=== PATIENT | female | born 1995 | race African-American/Black ===

== ENCOUNTER 2016-11-08 15:55 | Inpatient (IN) | payer OTHER ==
[~2016-11-08] VITALS: Ht 165.1 cm; Wt 95.7 kg
[2016-11-08 20:25] LABS: ABSOLUTE BASOPHIL COUNT 0 /CUMM (0.0-0.2); ABSOLUTE EOSINOPHIL COUNT 0.1 /CUMM (0.0-0.7); ABSOLUTE GRANULOCYTE CT 5.3 /CUMM (1.4-6.5); ABSOLUTE LYMPH COUNT 2.5 /CUMM (1.2-3.4); ABSOLUTE MONOCYTE COUNT 0.8 /CUMM (0.10-0.60); BASOPHIL % 0.3 % (0.0-2.0); MEAN CORPUSCULAR HGB 28.7 PG (27.0-31.0); MEAN CORPUSCULAR HGB CONC 32.5 G/DL (33.0-37.0); MEAN CORPUSCULAR VOLUME 88.3 FL (81.0-99.0); MEAN PLATELET VOLUME 8.4 FL (7.4-10.4); PLATELET COUNT 256 /CUMM (130-400); RBC DISTRIBUTION WIDTH 15.5 % (11.5-14.5); RED BLOOD CELL CT 4.08 /CUMM (4.20-5.40); WHITE BLOOD CELL COUNT 8.7 /CUMM (4.8-10.8)
--- NOTE | 2016-11-09 05:25 | History & Physical ---
General Information and HPI MD Statement: I have seen and personally examined RUSSELL MATTHEW and documented this H&P. The patient is a 21 year old female at [41] weeks and [0] days gestation who presented with a chief complaint of [active labor]. Source of Information: police History of Present Illness: actyive labor. 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 EENTM: Reports: no symptoms. Cardiovascular: Reports: no symptoms. Respiratory: Reports: no symptoms. GI: Reports: no symptoms. Genitourinary: Reports: see HPI. Musculoskeletal: Reports: no symptoms. Skin: Reports: no symptoms. Neurological/Psychological: Reports: no symptoms. Hematologic/Endocrine: Reports: no symptoms. Immunologic/Allergic: Reports: no symptoms. All Other Systems: Reviewed and Negative Exam & Diagnostic Data Last 24 Hrs of Vital Signs/I&O Intake & Output / 0800 04/ 0000 11/08 1600 Intake Total Output Total Balance Patient 211 lb Weight Obstetric Exam Wgt Gained During : 40 Pelvimetry: gynecoid Dilation (cm): 5 Effacement (%): 100 Station: -1 Membranes: intact Fluid: unknown Fundal Height (cm): 41 Multiple Gestation? No Contractions: q2 #1 - FHR Baseline: 135 Category: 1 Estimated Weight: 8 Presentation: cephalic Patient for Induction? No Physical Exam: chest cta cv nl s1s1 abd gravid ext nt Labs Blood Type & Rh: B pos Antibody Screen: neg Hct/Hgb & Platelets #1: Hct/Hgb & Platelets #2: Rubella: imm VDRL #1: nr VDRL #2: nr HbsAg: neg HIV #1: neg HIV #2 neg 1 Hr P Group B Strep: neg Initial Ultrasound: wnl Anatomy Ultrasound: wnl Genetic Testing: neg Assessment/Plan Assessment/Plan: 41 week labor exp mgmt As Ranked By This Provider Problem List: 1. Core Measures/Miscellaneous Venous Thromboembolism VTE Risk Factors: / VTE Contraindications: No Contraindications VTE Diagnosis: No Beta Corey Is Beta Corey a Home Med? No Antibiotics Is Patient on Antibiotics? No
--- NOTE | 2016-11-09 05:27 | Labor & Delivery Summary ---
Delivery Summary Vaginal Delivery: Vaginal: spontaneous Episiotomy/Lacerations: Episiotomy/Lacerations: epis Type: rml Repair: 3-0 layered Anesthesia: local Placenta: Placenta: spontanteous, normal, 3 vessel Anesthesia: none Baby's Weight: 8-2 Apgars - 1 Min: 9 Apgars - 5 Min: 9
[2016-11-09 17:25] LABS: ABSOLUTE BASOPHIL COUNT 0 /CUMM (0.0-0.2); ABSOLUTE EOSINOPHIL COUNT 0.1 /CUMM (0.0-0.7); ABSOLUTE GRANULOCYTE CT 8.9 /CUMM (1.4-6.5); ABSOLUTE LYMPH COUNT 2.3 /CUMM (1.2-3.4); ABSOLUTE MONOCYTE COUNT 1.6 /CUMM (0.10-0.60); BASOPHIL % 0.3 % (0.0-2.0); EOSINOPHIL % 0.6 % (0-5); GRANULOCYTE % 68.8 % (42.2-75.2); MEAN CORPUSCULAR HGB 29.3 PG (27.0-31.0); MEAN CORPUSCULAR HGB CONC 32.8 G/DL (33.0-37.0); MEAN CORPUSCULAR VOLUME 89.3 FL (81.0-99.0); MEAN PLATELET VOLUME 8.3 FL (7.4-10.4); PLATELET COUNT 230 /CUMM (130-400); RBC DISTRIBUTION WIDTH 15.3 % (11.5-14.5); RED BLOOD CELL CT 3.15 /CUMM (4.20-5.40); WHITE BLOOD CELL COUNT 12.9 /CUMM (4.8-10.8)
[2016-11-09 17:26] LABS: HEMATOCRIT 28.1 % (37-47)
--- NOTE | 2016-11-09 17:53 | RADIOLOGY REPORT ---
EXAMINATION: XR CHEST CLINICAL INFORMATION: 21-year-old female patient with chest discomfort. "Trouble catching breath" COMPARISON: None TECHNIQUE: 2 views of the chest were obtained. FINDINGS: No significant abnormality is noted involving the heart, lungs, mediastinum, bony thorax or soft tissues. IMPRESSION: Unremarkable examination.
--- NOTE | 2016-11-10 08:56 | PN- Post Delivery/GYN ---
Subjective Subjective: NO C/O Review of Systems: NEG ROS Objective Last 24 Hrs of Vital Signs/I&O VSS Physical Exam: FF EXT NT Assessment/Plan Assessment/Plan S/P SVS PPD1 STABLE CPM CIRC DISCHARGE TOMORROW Problem List: 1.
[2016-11-10] MEDS ORDERED: IBUPROFEN800 M1 PO (09:04)
[2016-11-10] MEDS ORDERED: DOCUSATE SODIU100 M3 PO (09:04)
[2016-11-10 09:21] LABS: ABSOLUTE BASOPHIL COUNT 0 /CUMM (0.0-0.2); ABSOLUTE EOSINOPHIL COUNT 0.1 /CUMM (0.0-0.7); ABSOLUTE GRANULOCYTE CT 5.3 /CUMM (1.4-6.5); ABSOLUTE LYMPH COUNT 2.8 /CUMM (1.2-3.4); ABSOLUTE MONOCYTE COUNT 0.9 /CUMM (0.10-0.60); BASOPHIL % 0.3 % (0.0-2.0); EOSINOPHIL % 1.3 % (0-5); GRANULOCYTE % 58.3 % (42.2-75.2); HEMATOCRIT 25.5 % (37-47); MEAN CORPUSCULAR HGB 29.3 PG (27.0-31.0); MEAN CORPUSCULAR HGB CONC 32.9 G/DL (33.0-37.0); MEAN PLATELET VOLUME 8.5 FL (7.4-10.4); PLATELET COUNT 198 /CUMM (130-400); RED BLOOD CELL CT 2.86 /CUMM (4.20-5.40); WHITE BLOOD CELL COUNT 9.1 /CUMM (4.8-10.8)
== END 2016-11-11 12:49 | DRG 560 ==
LOC: CBCO 15:55 → GNO 19:23
PROVIDERS: ADMIT Obstetrics & Gynecology
PROC: 10E0XZZ Delivery of Products of Conception, External Approach (ICD-10-PCS; principal; 2016-11-09)
PROC: 0W8NXZZ Division of Female Perineum, External Approach (ICD-10-PCS; principal; 2016-11-09)
DX: O48.0 Post-term pregnancy (principal); Z3A.41 41 weeks gestation of pregnancy; Z37.0 Single live birth
CPT/HCPCS: GNOS; 36415; 80307; 81001; 93005; 93010; 96360; 96361; G0378; G0463; J0595; J2270; J2310; J7120